=== PATIENT | male | born 1995 | race Caucasian/White ===

== ENCOUNTER → 2018-01-14 | Outpatient (REF) | payer BC ==
[2018-01-14 10:31] LABS: PLATELET COUNT, AUTOMATED 219 K/uL (150-450)
== END ==
PROVIDERS: ATTEND Nurse Practitioner Family
DX: R10.9 Unspecified abdominal pain (principal)
CPT/HCPCS: 82040; 82247; 82310; 82374; 82435; 82565; 82947; 84075; 84132; 84155; 84295; 84450; 84460; 84520; 85025

== ENCOUNTER → 2019-02-08 | Outpatient (CLI) | payer OTHER ==
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
--- NOTE | 2019-02-08 18:03 | RADIOLOGY IMAGING REPORT ---
FACILITY: [facility] [place] PATIENT NAME: Hussain Laguna : 1995 MR: [id number] V: [id number] EXAM DATE: ORDERING PHYSICIAN: BUFFY AKERS TECHNOLOGIST: Location: [facility] - [place] Patient: Hussain Laguna : 1995 Visit/Account:[id number] Date of Sevice: 02/08/2019 5 views cervical spine Indication: Back pain. Comparison: None available. Findings: The prevertebral soft tissues are within normal limits. The odontoid is unremarkable. The vertebral body heights are well maintained. No significant osseous neural foraminal narrowing on the oblique views. IMPRESSION: 1. No acute osseous or acute alignment abnormality of the cervical spine on this examination. Report Dictated By: Garcia oJe MD at 02/08/2019 5:59 PM Report E-Signed By: Garcia Joe MD at 02/08/2019 6:00 PM WSN:[id number]
== END ==
LOC: RAD 15:09
PROVIDERS: ATTEND Chiropractor
DX: M51.36 Other intervertebral disc degeneration, lumbar region (principal); M54.6 Pain in thoracic spine; M54.2 Cervicalgia
CPT/HCPCS: 72050; 72072; 72120